=== PATIENT | male | born 1955 | race Caucasian/White ===

== ENCOUNTER → 2016-11-30 | Outpatient (CLI) | payer BC ==
[~2016-11-30] MED LIST: AMLO5TAB2 PO; ASPI81TA85 PO; MULT1TAB10 PO
[2016-12-03 00:07] LABS: Lyme Disease IgG/IgM Antibodie <0.91 ISR (0.00-0.90); Lyme Disease IgM Ab Quantitati <0.80 index (0.00-0.79)
== END ==
LOC: M WUC 11:19
PROVIDERS: ATTEND Internal Medicine Cardiovascular Disease
DX: R94.31 Abnormal electrocardiogram [ECG] [EKG] (principal)

== ENCOUNTER → 2017-01-10 | Outpatient (CLI) | payer BC ==
--- NOTE | 2017-01-10 14:29 | REP ---
Clinical: Pain. Technique: AP, lateral, bilateral oblique views of the right ankle. Findings: No acute fracture or dislocation. No significant swelling. Ankle mortise intact. Degenerative changes including cortical irregularities and small well corticated fragments suggest sequelae of old injury. No acute fracture dislocation. 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 No acute fracture dislocation. No acute swelling. Signed by Torrey Sandhu MD 01/10/2017 09:56 A
== END ==
LOC: M WUC 09:22
PROVIDERS: ATTEND Nurse Practitioner Family
DX: M25.571 Pain in right ankle and joints of right foot (principal)

== ENCOUNTER → 2017-01-16 | Outpatient (CLI) | payer BC ==
--- NOTE | 2017-01-16 10:18 | REP ---
MAXILLOFACIAL CT WITHOUT CONTRAST: HISTORY: Recurrent infection. Mucosal thickening is present in the right maxillary sinus. There is complete opacification of the right maxillary sinus. Mild mucosal thickening is present in the right ethmoid sinus. Minimal mucosal thickening is present in the right frontal, right sphenoid, and left maxillary sinuses. The remaining sinuses are clear. The right uncinate process is incompletely seen. This is likely due to demineralization secondary to chronic sinusitis. The middle and inferior nasal turbinates are partially paradoxical. There is minimal deviation of the nasal septum to the right. The cribriform plate, medial mosley of the orbits, and optic canals are intact. The carotid canals form a segment of the posterolateral mosley of the sphenoid sinus. A 2 mm radiopaque density is present in the superomedial aspect of the right orbit. IMPRESSION: Sinus mucosal thickening as described above. Signed by Naeem Serrano MD 01/16/2017 10:45 A
== END ==
LOC: M RAD 09:37
PROVIDERS: ATTEND Nurse Practitioner Family
DX: J01.81 Other acute recurrent sinusitis (principal)

== ENCOUNTER → 2017-02-21 | Outpatient (REF) | payer BC | LOC: M LAB REF 12:57 | PROVIDERS: ATTEND Otolaryngology | DX: J32.0 Chronic maxillary sinusitis (principal) ==

== ENCOUNTER → 2017-04-12 | Outpatient (REF) | payer BC | LOC: M LAB REF 13:01 | PROVIDERS: ATTEND Ophthalmology | DX: H02.413 Mechanical ptosis of bilateral eyelids (principal) ==

== ENCOUNTER → 2017-05-31 | Day surgery (SDC) | payer BC ==
[~2017-05-31] VITALS: Ht 182.9 cm; Wt 108.9 kg
[~2017-05-31] MED LIST changes: +EPINEPHrine 1MG/ML INJ 30ML MD-VIAL As Ordered ONE; +GLYCOPYRROLATE INJ 0.2 MG/ML 2 ML VIAL As Ordered ONE; +LIDOCAINE 2% INJ 100 MG/5 ML SDV (FOR ANES.) As Ordered ONE; +LIDOCAINE W/EPINEPHRINE 1% 20ML VIAL As Ordered ONE; +LR 1,000 ML IV ONE; +LR 1,000 ML IV SCH; +METHYLENE BLUE 0.5% (5MG/ML) 10 ML AMP (PROVAYBLUE)(Q9968 PER 1MG) As Ordered ONE; +MIDAZOLAM INJ 2 MG/2 ML VIAL (J2250) As Ordered ONE; +ONDANSETRON 4MG/2ML VIAL (J2405) As Ordered ONE; +ONDANSETRON 4MG/2ML VIAL (J2405) IV PRN; +OXYMETAZOLINE NASAL SPRAY (AFRIN) As Ordered ONE; +PHENYLephrine HCL 500 MCG/5 ML (100MCG/ML) SYRINGE (J2370) As Ordered ONE; +PROPOFOL 200 MG/20 ML VIAL As Ordered ONE; +ROCURONIUM BROMIDE 50 MG/5 ML VIAL/SYRINGE As Ordered ONE; +SODIUM CHLORIDE 0.9% NASAL GEL 15MG (AYR) As Ordered ONE; +dexameTHASONE 4 MG/ML 1ML VIAL (J1100) As Ordered ONE; +dexameTHASONE 4 MG/ML 1ML VIAL (J1100) IV ONE; +ePHEDrine SULFATE 25 MG/5 ML(5MG/ML) SYRINGE As Ordered ONE; +fentaNYL 100 MCG/2 ML INJECTION (J3010) IV PRN; +fentaNYL 250 MCG/5 ML INJECTION (J3010) As Ordered ONE
[2017-05-31 15:30] VITALS: BP 131/72
--- NOTE | 2017-06-03 11:08 | RO ---
DATE OF PROCEDURE: 05/31/2017 PREOPERATIVE DIAGNOSES: Chronic maxillary sinusitis, chronic right anterior ethmoid sinusitis. POSTOPERATIVE DIAGNOSES: Chronic maxillary sinusitis, chronic right anterior ethmoid sinusitis. PROCEDURE PERFORMED: 1. Endoscopic right maxillary antrostomy with removal of the soft tissue. 2. Endoscopic right anterior ethmoidectomy. 3. Implantation of the right Propel stent. 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 CLINICAL PREAMBLE: This 61-year-old man presented to the office complaining of right-sided cheek pressure sensation as well as tenderness. CT scan of the sinuses revealed unilateral opacification of the right maxillary sinusitis. Physical examination purulent discharge over the right ostiomeatal complex. Management options including surgery listed above have been discussed. The patient understood and consented to the procedure. DESCRIPTION OF OPERATION: Patient was identified in preoperative holding and had the right cheek marked. She was brought to the operating room in stable condition. In supine position on the operating room table, the patient received general anesthesia followed orotracheal intubation without incident. Patient was prepped and draped in the usual fashion for the procedure. Both eyes were lubricated and protected using Tegaderm. Both sides of the nasal cavity were packed using pledgets soaked in 1:1000 epinephrine. After a waiting period, the pledgets were removed. Both sides of the nasal cavity were inspected using 30 degrees nasal endoscope. The right uncinate process and the anterior surface of the right middle nasal turbinate were infiltrated with 1% lidocaine with 1:100,000 epinephrine. The uncinate was palpated and retracted anteriorly. The ball-tipped probe was used to identify the right maxillary antrum. An accessory ostium was noted in the right ostiomeatal complex area. At this time, using the Acclarent balloon system, the balloon catheter was successfully introduced into the right ostiomeatal complex into the right maxillary antrum. The guidewire was successfully introduced into the right maxillary sinus cavity. The cavity was then positively illuminated. The balloon was then advanced into the maxillary antrum to allow dilation of the maxillary antrum with 12 atmospheric pressure for 5 seconds. The balloon was then withdrawn to the level of the entrance of maxillary antrum and then reinflated for 5 seconds at 12 atmospheric pressure. At this time, the soft tissue between the main antrum and the accessory ossicle was successfully resected using side-biting forceps and out-biting forceps. The right sinus cavity and the right maxillary sinus cavity was irrigated with 150 mL of normal saline solution. The right ethmoidalis bulla was identified and resected using Blakesley forceps. The anterior ethmoid air cells with polypoid degeneration were also resected as well. Hemostasis was achieved. At this time, the Propel stent was successfully implanted into the right ostiomeatal complex allowing visualization of the right middle nasal turbinate. At the end of the procedure, sponge and instrument counts were correct. There were no complications. Estimated blood loss of 60 mL. General anesthesia was reversed and the patient was extubated and brought to the recovery room in stable condition. In the recovery area, the patient exhibited. No evidence of periorbital ecchymosis. Both pupils were equal and reactive. Full extraocular motions were noted and appeared to be symmetrical. MTDD
== END | disposition home or self-care (01) ==
LOC: M SDC 09:52
PROVIDERS: ATTEND Otolaryngology
DX: J32.0 Chronic maxillary sinusitis (principal); J32.2 Chronic ethmoidal sinusitis; J31.0 Chronic rhinitis; R43.8 Other disturbances of smell and taste; I10 Essential (primary) hypertension; E78.00 Pure hypercholesterolemia, unspecified; Z79.899 Other long term (current) drug therapy; Z79.82 Long term (current) use of aspirin
CPT/HCPCS: 31255; 31256; 88305; C2625; J1100; J2250; J2370; J2405; J3010; Q9968

== ENCOUNTER → 2017-09-07 | Outpatient (CLI) | payer BC ==
[~2017-09-07] MED LIST changes: -EPINEPHrine 1MG/ML INJ 30ML MD-VIAL As Ordered ONE; -GLYCOPYRROLATE INJ 0.2 MG/ML 2 ML VIAL As Ordered ONE; -LIDOCAINE 2% INJ 100 MG/5 ML SDV (FOR ANES.) As Ordered ONE; -LIDOCAINE W/EPINEPHRINE 1% 20ML VIAL As Ordered ONE; -LR 1,000 ML IV ONE; -LR 1,000 ML IV SCH; -METHYLENE BLUE 0.5% (5MG/ML) 10 ML AMP (PROVAYBLUE)(Q9968 PER 1MG) As Ordered ONE; -MIDAZOLAM INJ 2 MG/2 ML VIAL (J2250) As Ordered ONE; -ONDANSETRON 4MG/2ML VIAL (J2405) As Ordered ONE; -ONDANSETRON 4MG/2ML VIAL (J2405) IV PRN; -OXYMETAZOLINE NASAL SPRAY (AFRIN) As Ordered ONE; -PHENYLephrine HCL 500 MCG/5 ML (100MCG/ML) SYRINGE (J2370) As Ordered ONE; -PROPOFOL 200 MG/20 ML VIAL As Ordered ONE; -ROCURONIUM BROMIDE 50 MG/5 ML VIAL/SYRINGE As Ordered ONE; -SODIUM CHLORIDE 0.9% NASAL GEL 15MG (AYR) As Ordered ONE; -dexameTHASONE 4 MG/ML 1ML VIAL (J1100) As Ordered ONE; -dexameTHASONE 4 MG/ML 1ML VIAL (J1100) IV ONE; -ePHEDrine SULFATE 25 MG/5 ML(5MG/ML) SYRINGE As Ordered ONE; -fentaNYL 100 MCG/2 ML INJECTION (J3010) IV PRN; -fentaNYL 250 MCG/5 ML INJECTION (J3010) As Ordered ONE
[2017-09-07 13:52] LABS: ALBUMIN/GLOBULIN RATIO 1.25 (1.00-1.93); ALKALINE PHOSPHATASE 78 U/L (45-117); ALT/SGPT 29 U/L (12-78); ANION GAP 6 MEQ/L (8-16); AST/SGOT 18 U/L (15-37); BILIRUBIN,TOTAL 0.8 MG/DL (0.2-1.0); BLOOD UREA NITROGEN 19 MG/DL (7-18); CALCIUM LEVEL 9.3 MG/DL (8.8-10.2); CARBON DIOXIDE LEVEL 29 MEQ/L (21-32); CHLORIDE LEVEL 107 MEQ/L (98-107); CHOLESTEROL LEVEL 180 MG/DL (<200); CREATININE FOR GFR 1.25 MG/DL (0.70-1.30); GLOMERULAR FILTRATION RATE > 60.0 (>49); GLUCOSE, FASTING 87 MG/DL (80-110); SODIUM LEVEL 142 MEQ/L (136-145); TOTAL PROTEIN 7.2 GM/DL (6.4-8.2); TRIGLYCERIDES LEVEL 142 MG/DL (<150)
== END ==
LOC: M WUC 08:29
PROVIDERS: ATTEND Nurse Practitioner Family
DX: I10 Essential (primary) hypertension (principal)

== ENCOUNTER 2017-11-17 08:38 | Inpatient (IN) | payer BC ==
[2017-11-17 09:44] LABS: BASO # 0.1 10^3/uL (0.0-0.2); BASO % 1.2 % (0.0-1.0); EOS # 0.1 10^3/uL (0.0-0.50); EOS % 2.4 % (0.0-3.0); IMMATURE GRANULOCYTE % 0.2 % (0-0); LYMPH # 1.8 10^3/uL (1.5-4.5); LYMPH % 30.3 % (24.0-44.0); MEAN CORPUSCULAR HEMOGLOBIN 30.9 pg (27.0-33.0); MEAN CORPUSCULAR HGB CONC 34.6 g/dl (32.0-36.5); MEAN CORPUSCULAR VOLUME 89.3 fl (80.0-96.0); MONO # 0.6 10^3/uL (0.0-0.8); MONO % 9.8 % (0.0-5.0); NEUTROPHILS # 3.3 10^3/uL (1.8-7.7); NEUTROPHILS % 56.1 % (36.0-66.0); PLATELET COUNT, AUTOMATED 284 10^3/uL (150-450); RED CELL DISTRIBUTION WIDTH 12.4 % (11.5-14.5); WHITE BLOOD COUNT 5.8 10^3/uL (4.0-10.0)
[2017-11-17 09:57] LABS: INR 0.97
[2017-11-17 10:04] LABS: ANION GAP 6 MEQ/L (8-16); BLOOD UREA NITROGEN 18 MG/DL (7-18); CALCIUM LEVEL 8.3 MG/DL (8.8-10.2); CARBON DIOXIDE LEVEL 28 MEQ/L (21-32); CHLORIDE LEVEL 110 MEQ/L (98-107); CREATININE FOR GFR 1.15 MG/DL (0.70-1.30); GLOMERULAR FILTRATION RATE > 60.0 (>49); GLUCOSE, FASTING 93 MG/DL (80-110); SODIUM LEVEL 144 MEQ/L (136-145)
[2017-11-17] MEDS ORDERED: ACETAMINOPHEN TAB 650MG DOSE (2X325MG) PO (12:00)
[2017-11-17] MEDS ORDERED: ONDANSETRON 4MG/2ML VIAL (J2405) IV (12:00)
[2017-11-17 12:25] LABS: ESTIMATED AVERAGE GLUCOSE 103 MG/DL (60-110)
[2017-11-17] MEDS: ASPIRIN 325 MG TAB PO (12:27)
[2017-11-17] MEDS: ENOXAPARIN 40 MG/0.4 ML SYRINGE (J1650) SC (12:29)
[2017-11-17] MEDS: amLODIPine 5 MG TAB PO (12:29)
[2017-11-17] MEDS ORDERED: SLF 3 ML SYR IV (15:45)
[2017-11-17] MEDS: ATORVASTATIN 20 MG TAB PO (20:35)
[2017-11-17] MEDS: SLF 3 ML SYR IV (20:43)
[2017-11-18 05:10] LABS: MEAN CORPUSCULAR HEMOGLOBIN 30.9 pg (27.0-33.0); MEAN CORPUSCULAR HGB CONC 34.8 g/dl (32.0-36.5); MEAN CORPUSCULAR VOLUME 88.9 fl (80.0-96.0); PLATELET COUNT, AUTOMATED 274 10^3/uL (150-450); RED CELL DISTRIBUTION WIDTH 12.4 % (11.5-14.5); WHITE BLOOD COUNT 7.2 10^3/uL (4.0-10.0)
[2017-11-18 05:28] LABS: ANION GAP 7 MEQ/L (8-16); BLOOD UREA NITROGEN 16 MG/DL (7-18); CALCIUM LEVEL 8.4 MG/DL (8.8-10.2); CARBON DIOXIDE LEVEL 28 MEQ/L (21-32); CHLORIDE LEVEL 107 MEQ/L (98-107); CHOLESTEROL LEVEL 184 MG/DL (<200); GLOMERULAR FILTRATION RATE > 60.0 (>49); GLUCOSE, FASTING 93 MG/DL (80-110); POTASSIUM SERUM 3.6 MEQ/L (3.5-5.1); SODIUM LEVEL 142 MEQ/L (136-145); TRIGLYCERIDES LEVEL 142 MG/DL (<150)
[2017-11-18] MEDS: SLF 3 ML SYR IV (06:00)
[2017-11-18] MEDS: ASPIRIN 325 MG TAB PO (08:23)
[2017-11-18] MEDS: ENOXAPARIN 40 MG/0.4 ML SYRINGE (J1650) SC (08:24)
[2017-11-18] MEDS: amLODIPine 5 MG TAB PO (08:24)
== END 2017-11-18 09:54 | disposition home or self-care (01) | DRG 47 ==
LOC: M ED 08:38 → M ED INP 11:46 → M PCU 13:44
DX: G45.9 Transient cerebral ischemic attack, unspecified (principal); I10 Essential (primary) hypertension; Z79.899 Other long term (current) drug therapy; E66.9 Obesity, unspecified; Z79.82 Long term (current) use of aspirin; E78.5 Hyperlipidemia, unspecified; Z68.31 Body mass index [BMI] 31.0-31.9, adult

== ENCOUNTER → 2018-08-30 | Outpatient (CLI) | payer BC ==
[2018-08-30 09:29] LABS: ALBUMIN 3.6 GM/DL (3.2-5.2); ALBUMIN/GLOBULIN RATIO 1.13 (1.00-1.93); ALKALINE PHOSPHATASE 82 U/L (45-117); ALT/SGPT 30 U/L (12-78); ANION GAP 6 MEQ/L (8-16); AST/SGOT 22 U/L (7-37); BLOOD UREA NITROGEN 16 MG/DL (7-18); CALCIUM LEVEL 8.9 MG/DL (8.8-10.2); CARBON DIOXIDE LEVEL 29 MEQ/L (21-32); CHLORIDE LEVEL 108 MEQ/L (98-107); CHOLESTEROL LEVEL 127 MG/DL (<200); CHOLESTEROL RISK RATIO 2.953 (<5); CREATININE FOR GFR 1.19 MG/DL (0.70-1.30); GLOMERULAR FILTRATION RATE > 60.0 (>49); GLUCOSE, FASTING 90 MG/DL (70-100); HDL CHOLESTEROL 43 MG/DL (>40); LDL CHOLESTEROL 61 MG/DL (<100); NON-HDL-C 84 MG/DL; POTASSIUM SERUM 4.8 MEQ/L (3.5-5.1); SODIUM LEVEL 143 MEQ/L (136-145); TOTAL PROTEIN 6.8 GM/DL (6.4-8.2); TRIGLYCERIDES LEVEL 114 MG/DL (<150)
== END ==
LOC: M WUC 08:10
DX: I10 Essential (primary) hypertension (principal); E78.00 Pure hypercholesterolemia, unspecified
CPT/HCPCS: 80053

== ENCOUNTER → 2019-05-08 | Outpatient (CLI) | payer BC ==
[~2019-05-08] MED LIST changes: -AMLO5TAB2 PO; +AMLO5TAB6 PO; +ASPI1TAB20 PO; +ATOR1TAB21 PO
[2019-05-08 10:02] LABS: ALBUMIN 3.6 GM/DL (3.2-5.2); ALT/SGPT 30 U/L (12-78); BILIRUBIN,TOTAL 1.1 MG/DL (0.2-1.0); BLOOD UREA NITROGEN 19 MG/DL (7-18); CALCIUM LEVEL 8.9 MG/DL (8.8-10.2); CARBON DIOXIDE LEVEL 29 MEQ/L (21-32); CHLORIDE LEVEL 107 MEQ/L (98-107); CHOLESTEROL LEVEL 131 MG/DL (<200); CHOLESTEROL RISK RATIO 2.787 (<5); CREATININE FOR GFR 1.16 MG/DL (0.70-1.30); GLOMERULAR FILTRATION RATE > 60.0 (>49); GLUCOSE, FASTING 90 MG/DL (70-100); HDL CHOLESTEROL 47 MG/DL (>40); LDL CHOLESTEROL 60 MG/DL (<100); NON-HDL-C 84 MG/DL; POTASSIUM SERUM 4.2 MEQ/L (3.5-5.1); SODIUM LEVEL 141 MEQ/L (136-145); TOTAL PROTEIN 7.2 GM/DL (6.4-8.2); TRIGLYCERIDES LEVEL 122 MG/DL (<150)
== END ==
LOC: M WUC 08:08
PROVIDERS: ATTEND Nurse Practitioner Family
DX: E78.00 Pure hypercholesterolemia, unspecified (principal); I10 Essential (primary) hypertension; N40.0 Benign prostatic hyperplasia without lower urinary tract symptoms
CPT/HCPCS: 36415; 80053; 80061; G0103

== ENCOUNTER → 2019-10-28 | Outpatient (CLI) | payer BC ==
[~2019-10-28] MED LIST changes: -ASPI1TAB20 PO; +ASPI325T57 PO
[2019-10-28 12:50] LABS: ALBUMIN 3.8 GM/DL (3.2-5.2); ALT/SGPT 35 U/L (12-78); BLOOD UREA NITROGEN 22 MG/DL (7-18); CALCIUM LEVEL 9.4 MG/DL (8.8-10.2); CARBON DIOXIDE LEVEL 28 MEQ/L (21-32); CHLORIDE LEVEL 107 MEQ/L (98-107); CHOLESTEROL LEVEL 135 MG/DL (<200); CHOLESTEROL RISK RATIO 3.068 (<5); CREATININE FOR GFR 1.25 MG/DL (0.70-1.30); GLOMERULAR FILTRATION RATE > 60.0 (>49); GLUCOSE, FASTING 98 MG/DL (70-100); HDL CHOLESTEROL 44 MG/DL (>40); LDL CHOLESTEROL 69 MG/DL (<100); NON-HDL-C 91 MG/DL; POTASSIUM SERUM 4.3 MEQ/L (3.5-5.1); SODIUM LEVEL 140 MEQ/L (136-145); TRIGLYCERIDES LEVEL 109 MG/DL (<150)
== END ==
LOC: M WUC 09:16
PROVIDERS: ATTEND Nurse Practitioner Family
DX: I10 Essential (primary) hypertension (principal); E78.00 Pure hypercholesterolemia, unspecified

== ENCOUNTER 2020-09-09 16:00 | Emergency (ER) | payer OTHER, BC ==
[~2020-09-09] VITALS: Ht 182.9 cm; Wt 117.1 kg
[2020-09-09 16:00] VITALS: BP 150/81
[~2020-09-09 16:00] MED LIST changes: +AMLO1TAB24 PO; -AMLO5TAB6 PO; -ASPI81TA85 PO; +ASPI81TA86 PO
[2020-09-09] MEDS ORDERED: PROPARACAINE 0.5% OPHTH SOL 15ML OS ONE (16:30)
[2020-09-09] MEDS ORDERED: FLUORESCEIN OPHTH 1 MG STRIP OS ONE (16:30)
[2020-09-09] MEDS ORDERED: POLYSOL OP (17:48)
== END 2020-09-09 18:02 | disposition home or self-care (01) ==
LOC: M ED 16:00
DX: H57.89 Other specified disorders of eye and adnexa (principal); Z79.82 Long term (current) use of aspirin; Z79.899 Other long term (current) drug therapy

== ENCOUNTER → 2023-02-22 | Outpatient (CLI) | payer MEDICARE, OTHER, BC ==
[~2023-02-22] MED LIST changes: +POLYSOL OP
== END ==
LOC: M WUC 11:12
PROVIDERS: ATTEND Physician Assistant Medical
DX: M79.641 Pain in right hand (principal); M79.642 Pain in left hand

== ENCOUNTER 2024-01-04 08:03 | Day surgery (SDC) | payer MEDICARE, BC, OTHER ==
[~2024-01-04] VITALS: Ht 182.9 cm; Wt 104.3 kg
[2024-01-04] MEDS: NS 1,000 ML IV ONE (08:37)
[2024-01-04] MEDS ORDERED: propofoL 200 MG/20 ML VIAL As Ordered ONE (10:02)
[2024-01-04] MEDS ORDERED: LIDOCAINE 2% 100MG/5ML SDV (FOR ANES.) As Ordered ONE (10:02)
[2024-01-04 10:19] VITALS: TEMP 98.3
[2024-01-04 10:25] VITALS: BP 121/72; O2SAT 94
== END 2024-01-04 10:32 | disposition home or self-care (01) ==
LOC: M OPP 08:03
PROVIDERS: ATTEND Surgery
DX: Z12.11 Encounter for screening for malignant neoplasm of colon (principal); K57.30 Diverticulosis of large intestine without perforation or abscess without bleeding; Z79.02 Long term (current) use of antithrombotics/antiplatelets; Z79.82 Long term (current) use of aspirin; Z79.899 Other long term (current) drug therapy

== ENCOUNTER → 2024-12-13 | Outpatient (REF) | payer MEDICARE, BC, OTHER | LOC: M LAB REF 12:55 | PROVIDERS: ATTEND Physician Assistant Medical | DX: F41.9 Anxiety disorder, unspecified (principal); G47.00 Insomnia, unspecified ==